=== PATIENT | male | born 1980 ===

== ENCOUNTER 2017-07-08 15:51 | Outpatient (CLI) | payer OTHER ==
[2017-07-10 13:16] LABS: HEPATITIS C ANTIBODY NON-REACTIVE (NON-REACTIVE)
[2017-07-10 13:32] LABS: HIV AG/AB 4TH GEN NON-REACTIVE (NON-REACTIVE)
== END 2017-07-08 15:52 | disposition home or self-care (01) ==
LOC: LAB.R 15:51
PROVIDERS: ATTEND Emergency Medicine
DX: N48.89 Other specified disorders of penis (principal)
CPT/HCPCS: 81599; 86592; 86803; 87070; 87389; 87491; 87591